=== PATIENT | female | born 1935 | race Hispanic/Latino ===

== ENCOUNTER 2017-05-26 22:42 | Inpatient (IN) | payer MEDICARE ==
[2017-05-26] MEDS ORDERED: Sodium Chloride 0.9% 1,000 ML IV ONE (23:18)
--- NOTE | 2017-05-26 23:32 | ED PDOC ---
Arrival/HPI - General Chief Complaint: Fever Time Seen by Provider: 05/26/17 22:43 Historian: Patient - History of Present Illness Narrative History of Present Illness (Text): 05/26/17 23:31 An 82 year old female, whose past medical history includes Rheumatoid arthritis and osteoporosis, presents to the emergency department complaining of fever, occasional chills and nonproductive cough for the past couple days. Patient denies any chest pain, back pain, nausea, vomiting, diarrhea or any other complaints at this time. Time/Duration: < week Symptom Onset: Sudden Symptom Course: Unchanged Activities at Onset: Rest Context: Home Past Medical History - Provider Review Nursing Documentation Reviewed: Yes - Infectious Disease Hx of Infectious Diseases: None - Cardiac Hx Cardiac Disorders: No Hx Pacemaker: No - Pulmonary Hx Respiratory Disorders: No - Neurological Hx Neurological Disorder: Yes Other/Comment: fainting - HEENT Hx HEENT Disorder: Yes Hx Glaucoma: Yes - Renal Hx Renal Disorder: No - Endocrine/Metabolic Hx Endocrine Disorders: No - Hematological/Oncological Hx Blood Disorders: No - Integumentary Hx Dermatological Disorder: No - Musculoskeletal/Rheumatological Hx Musculoskeletal Disorders: Yes Hx Arthritis: Yes (RA) Hx Falls: Yes Other/Comment: rheumatoid artritis of hands, spine surgery, right foot sx - Gastrointestinal Hx Gastrointestinal Disorders: Yes Other/Comment: Polyp removed from rectum - Genitourinary/Gynecological Hx Genitourinary Disorders: No - Psychiatric Hx Psychophysiologic Disorder: Yes Hx Anxiety: Yes Hx Depression: Yes ( of daughter 12 yrs ago) Hx Emotional Abuse: No Hx Physical Abuse: No Hx Substance Use: No - Surgical History Hx Hysterectomy: Yes Other/Comment: R Foot SX, Spinal SX (Neck) - Anesthesia Hx Anesthesia: No Hx Anesthesia Reactions: No Hx Malignant Hyperthermia: No - Suicidal Assessment Feels Threatened In Home Enviroment: No Family/Social History - Physician Review Nursing Documentation Reviewed: Yes Family/Social History: No Known Family HX Smoking Status: Never Smoked Hx Alcohol Use: No Hx Substance Use: No Allergies/Home Meds Allergies/Adverse Reactions: Allergies No Known Allergies Allergy (Verified 10/07/15 18:32) Home Medications: Home Meds Medication Instructions Recorded Confirmed Folic Acid [Folic Acid] 1 mg PO DAILY 06/16/15 06/18/15 Latanoprost [Xalatan] 2.5 ml BOTHEYES DAILY 06/16/15 06/18/15 Methotrexate [Methotrexate] 10 mg PO QWK 06/16/15 06/16/15 Cefpodoxime [Vantin] 200 mg PO BID 06/18/15 06/18/15 Gabapentin [Neurontin] 300 mg PO HS 06/18/15 06/18/15 LORazepam [Ativan] 1 mg PO HS 06/18/15 06/18/15 oxyCODONE [oxyCODONE Immediate 10/07/15 Release Tab] Review of Systems - Physician Review All systems were reviewed & negative as marked: Yes - Review of Systems Constitutional: Fevers, Other (chills) Respiratory: Cough (non productive) Cardiovascular: absent: Chest Pain Gastrointestinal: absent: Diarrhea, Nausea, Vomiting Musculoskeletal: absent: Back Pain Physical Exam Vital Signs Reviewed: Yes Vital Signs Temp Pulse Resp BP Pulse Ox 05/27/17 01:23 98.4 F 97 H 18 145/76 95 05/26/17 22:58 101.3 F H 113 H 18 162/81 H 95 Temperature: Febrile Blood Pressure: Hypertensive Pulse: Tachycardic Respiratory Rate: Normal Appearance: Positive for: Well-Appearing, Non-Toxic, Comfortable Pain Distress: None Mental Status: Positive for: Alert and Oriented X 3 - Systems Exam Head: Present: Atraumatic, Normocephalic Pupils: Present: PERRL Extroacular Muscles: Present: EOMI Conjunctiva: Present: Normal Mouth: Present: Moist Mucous Membranes Neck: Present: Normal Range of Motion. No: Meningeal Signs Respiratory/Chest: Present: Rhonchi (scattered rhonchi b/l). No: Respiratory Distress, Accessory Muscle Use Cardiovascular: Present: Tachycardic (S1, S2) Abdomen: Present: Normal Bowel Sounds. No: Tenderness, Distention, Peritoneal Signs Back: Present: Normal Inspection Upper Extremity: Present: Normal Inspection. No: Cyanosis, Edema Lower Extremity: Present: Normal Inspection. No: Edema Neurological: Present: GCS=15, CN II-XII Intact, Speech Normal, Motor Func Grossly Intact, Normal Sensory Function Skin: Present: Warm, Dry, Normal Color. No: Rashes Psychiatric: Present: Alert, Oriented x 3, Normal Insight, Normal Concentration Medical Decision Making ED Course and Treatment: 05/26/17 23:29 Impression: An 82 year old female with fever, occasional chills and nonproductive cough. Plan: -- EKG -- chest xray -- labs -- Urinalysis -- IV fluids, Tylenol -- Reassess and disposition Prior Visits: Notes and results from previous visits were reviewed. Patient was last seen in the emergency department on 01/13/16 for evaluation of headache, right upper arm pain and back pain s/p fall. Progress Notes: 05/27/17 01:14 Chest xray: No acute process, as read by me. 05/27/17 02:10 EKG: Ordered, reviewed, and independently interpreted the EKG. Rate : 103 BPM Rhythm : sinus tachycardia Interpretation : No acute changes 05/27/17 02:[address] Ayon, who accepts patient under his service. - Lab Interpretations Lab Results: 05/26/17 23:40 05/26/17 23:40 Lab Results 05/27/17 00:42: Urine Color Straw, Urine Appearance Clear, Urine pH 6.5, Ur Specific [place] 1.010, Urine Protein Negative, Urine Glucose (UA) Negative, Urine Ketones Negative, Urine Blood Negative, Urine Nitrate Negative, Urine Bilirubin Negative, Urine Urobilinogen 0.2, Ur Leukocyte Esterase Negative 05/26/17 23:40: Influenza Typ A,B (EIA) Negative for flu a/b 05/26/17 23:40: Sodium 137, Chloride 100, Potassium 4.1, Carbon Dioxide 26, Anion Gap 14, BUN 22 H, Creatinine 1.0, Est GFR ( Amer) > 60, Est GFR ( Non-Af Amer) 53, Random Glucose 145 H, Calcium 9.4, Phosphorus 3.1, Magnesium 2.0, Total Bilirubin 0.4, AST 21, ALT 22, Alkaline Phosphatase 88, Total Protein 7.2, Albumin 4.3, Globulin 2.9, Albumin/Globulin Ratio 1.5 05/26/17 23:40: pO2 59 H, VBG pH 7.38, VBG pCO2 46.0, VBG HCO3 27.2, VBG Total CO2 28.6 H, VBG O2 Sat (Calc) 93.0 H, VBG Base Excess 1.5, VBG Potassium 4.0, Sodium 135.0, Chloride 103.0, Lactate 1.5, FiO2 21.0, Venous Blood Potassium 4.0 05/26/17 23:40: PT 11.4, INR 1.00, APTT 32.0 05/26/17 23:40: WBC 7.1, RBC 3.91, Hgb 11.6 L, Hct 36.7, MCV 93.9, MCH 29.7, MCHC 31.6, RDW 13.4, Plt Count 230, MPV 9.5, Gran % 74.3 H, Lymph % (Auto) 12.0 L, [place] % (Auto) 11.0 H, Eos % (Auto) 2.3, Baso % (Auto) 0.4, Gran # 5.27, Lymph # 0.9 L, [place] # 0.8 H, Eos # 0.2, Baso # 0.03 I have reviewed the lab results: Yes - RAD Interpretation Radiology Orders: 05/26/17 23:18 CHEST PORTABLE [RAD] Stat - EKG Interpretation Interpreted by ED Physician: Yes Type: 12 lead EKG - Medication Orders Current Medication Orders: Ceftriaxone Sodium (Rocephin 1 Gram Ivpb) 1 gm in 100 mls @ 200 mls/hr IV ONCE STA PRN Reason: Protocol Stop: 05/27/17 02:39 Discontinued Medications Acetaminophen (Tylenol 325mg Tab) 650 mg PO STAT STA Stop: 05/26/17 23:24 Last Admin: 05/27/17 00:07 Dose: 650 mg MAR Pain/Vitals Document 05/27/17 00:07 Mike (Rec: 05/27/17 00:07 [id number]) Pain Reassessment Is This A Pain ReAssessment? No Sleep Is patient sleeping during reassessment? No Presence of Pain Presence of Pain No Sodium Chloride (Sodium Chloride 0.9%) 1,000 mls @ 2,000 mls/hr IV .Q30M ONE Stop: 05/26/17 23:47 Last Admin: 05/27/17 00:08 Dose: 2,000 mls/hr eMAR Start Stop Document 05/27/17 00:08 Mike (Rec: 05/27/17 00:08 [id number]) Intravenous Solution Start Date 05/26/17 Start Time 23:40 - Scribe Statement The provider has reviewed the documentation as recorded by the Eula Flores Provider Scribe Attestation: All medical record entries made by the Scribe were at my direction and personally dictated by me. I have reviewed the chart and agree that the record accurately reflects my personal performance of the history, physical exam, medical decision making, and the department course for this patient. I have also personally directed, reviewed, and agree with the discharge instructions and disposition. Disposition/Present on Arrival - Present on Arrival Any Indicators Present on Arrival: No History of DVT/PE: No History of Uncontrolled Diabetes: No Urinary Catheter: No History of Decub. Ulcer: No History Surgical Site Infection Following: None - Disposition Have Diagnosis and Disposition been Completed?: Yes Diagnosis: Fever, SIRS (systemic inflammatory response syndrome) Disposition: HOSPITALIZED Disposition Time: 02:12 Patient Plan: Observation Patient Problems: Current Active Problems Problem Status Onset Fever Acute SIRS (systemic inflammatory response syndrome) Acute Condition: STABLE Forms: [facility] ([place]ots[place]an)
[2017-05-27 00:06] LABS: VENOUS BLOOD GAS BASE EXCESS 1.5 mmol/L (0.0-2.0); VENOUS BLOOD GAS PO2 59 mm/Hg (30-55); VENOUS BLOOD PH 7.38 (7.32-7.43)
[2017-05-27 00:07] LABS: BASO # 0.03 K/mm3 (0.0-2.0); BASO % 0.4 % (0.0-3.0); EOS # 0.2 (0.0-0.7); EOS % 2.3 % (1.5-5.0); GRAN # 5.27 (1.4-6.5); GRAN % 74.3 % (50.0-68.0); HEMOGLOBIN 11.6 g/dL (12.0-16.0); LYMPH # 0.9 (1.2-3.4); MEAN CELL VOLUME 93.9 fl (80.0-105.0); MEAN CORPUSCULAR HEMOGLOBIN 29.7 pg (25.0-35.0); MEAN CORPUSCULAR HGB CONC 31.6 g/dl (31.0-37.0); MEAN PLATELET VOLUME 9.5 fl (7.0-11.0); MONO # 0.8 (0.1-0.6); RBC 3.91 10^6/uL (3.5-6.1); RED CELL DISTRIBUTION WIDTH 13.4 % (11.5-14.5); WHITE BLOOD COUNT 7.1 10^3/ul (4.5-11.0)
[2017-05-27 00:22] LABS: PROTHROMBIN TIME 11.4 SECONDS (9.4-12.5)
[2017-05-27 00:29] LABS: ALB/GLOB RATIO 1.5 (1.1-1.8); ALBUMIN 4.3 g/dL (3.0-4.8); ALT/SGPT 22 U/L (7-56); AST/SGOT 21 U/L (14-36); BLOOD UREA NITROGEN 22 mg/dL (7-21); CALCIUM 9.4 mg/dL (8.4-10.5); GFR AFRICAN-AMERICAN > 60; GFR NON-AFRICAN AMERICAN 53
[2017-05-27 00:57] LABS: PH,URINE 6.5 (4.7-8.0); URINE BILIRUBIN NEGATIVE (NEGATIVE); URINE BLOOD NEGATIVE (NEGATIVE); URINE GLUCOSE (UA) NEGATIVE (NEGATIVE); URINE LEUKOCYTE ESTERASE NEGATIVE Leu/uL (NEGATIVE); URINE NITRATE NEGATIVE (NEGATIVE); URINE PROTEIN NEGATIVE mg/dL (<30 mg/dL); URINE UROBILINOGEN 0.2 E.U./dL (<1 E.U./dL)
[2017-05-27 00:58] LABS: URINE APPEARANCE CLEAR (CLEAR); URINE COLOR STRAW (YELLOW)
[2017-05-27] MEDS ORDERED: cefTRIAXone 1 gm 1 GM/100 ML BAG IV STA (02:10)
--- NOTE | 2017-05-27 09:05 | RAD ---
HISTORY: Sepsis Patient COMPARISON: 01/13/2016. FINDINGS: LUNGS: The lungs are well inflated and clear. PLEURA: No significant pleural effusion identified, no pneumothorax apparent. CARDIOVASCULAR: The heart is normal in size. Atherosclerotic aortic arch calcifications are present. OSSEOUS STRUCTURES: No significant abnormalities. VISUALIZED UPPER ABDOMEN: Normal. OTHER FINDINGS: None. IMPRESSION: No active pulmonary disease.
[2017-05-27] MEDS ORDERED: cefTRIAXone 2 GM IN NS 2 GM/100 ML BAG IVPB STA (10:07)
--- NOTE | 2017-05-27 10:18 | CARD ---
APPROVED REPORT EKG Measurement Heart [id number] <Conclusion> Sinus tachycardia LVH by voltage No change except for faster rate
[2017-05-27 12:29] LABS: TROPONIN I < 0.01 ng/mL
--- NOTE | 2017-05-27 12:36 | CT ---
PROCEDURE: CT Chest without contrast HISTORY: r/o infilt COMPARISON: None. TECHNIQUE: Contiguous axial images were obtained through the chest without intravenous contrast enhancement. Sagittal and coronal reconstructions were performed. Radiation dose (DLP): 419 mGy-cm. This CT exam was performed using one or more of the following dose reduction techniques: Automated exposure control, adjustment of the mA and/or kV according to patient size, and/or use of iterative reconstruction technique. FINDINGS: LUNGS: Clear lungs. Visualized airway clear. MEDIASTINUM: Unremarkable thoracic aorta. No aneurysm. Normal sized heart. Main pulmonary artery unremarkable. No vascular congestion. No lymphadenopathy. PLEURA: No pleural fluid. No pneumothorax. BONES: No fracture. No destructive lesion. UPPER ABDOMEN: Grossly unremarkable. OTHER FINDINGS: None. IMPRESSION: Unremarkable non-contrast enhanced CT of the chest. No evidence of infiltrate
[2017-05-27 12:41] LABS: T3 UPTAKE 31.6 % (23.0-41.0); T4 5.8 ug/dL (5.5-11.0)
[2017-05-27 19:23] VITALS: BMI 23.0
[2017-05-27] MEDS ORDERED: Pneumococcal 23-Valent Vaccine IM ONE (19:23)
[2017-05-27] MEDS ORDERED: Influenza Vaccine 60 mcg/0.5 mL SYR (4YR UP) IM ONE (19:23)
--- NOTE | 2017-05-27 21:42 | CON ---
DATE: 05/27/2017 LOCATION: The patient is seen in emergency room. CHIEF COMPLAINT: Fever times several days. HISTORY OF PRESENT ILLNESS: This is an 82-year-old with past medical history of rheumatoid arthritis, on methotrexate; history of depression; hyperlipidemia; rectal bleeding; rectal polyp; history of osteoporosis, who is admitted to the emergency room complaining of fevers times several days. The patient states she has been having cough. The cough is nonproductive. She is having chills. She has no abdominal pain. There is no chest pain. No diarrhea or constipation. No bright red blood per rectum. No melena. No dysuria or frequency. PAST MEDICAL HISTORY: Significant for rheumatoid arthritis, depression, hyperlipidemia, rectal bleeding, rectal polyps, and osteoporosis. PAST SURGICAL HISTORY: Significant for foot surgery. The patient had a colonoscopy and biopsy on 03/07/2016. The patient also had hysterectomy. ALLERGIES: THE PATIENT HAS NO KNOWN ALLERGIES. MEDICATIONS AT HOME: Include oxycodone, methotrexate, and Tylenol. PHYSICAL EXAMINATION: VITAL SIGNS: On exam, the patient is in bed, appearing washed out and weak with a temperature of 99.5, T-max is 101.3; heart rate of 113; respiratory rate of 18 to 20; blood pressure is 160/80; oxygen saturation of 95%. HEENT: Unremarkable. NECK: Supple. LUNGS: Decreased breath sounds. HEART: Normal S1, S2. ABDOMEN: Soft, nontender. LABORATORY EXAMINATION: Reveals a white count of 7.1, hemoglobin of 11, platelets of 230, 74% granulocytosis. Coagulation is noted and blood gases are noted, pO2 of 59, pCO2 is 46 and FiO2 of 21%. The patient's BUN is 22, creatinine is 1.0 with a random glucose of 145. LFTs are normal. Urinalysis is unremarkable, and influenza serology is negative. Chest x-ray is reported to be negative. EKG, official report is not available. Dr. Catracho Alejandre's note is reviewed. ASSESSMENT AND PLAN: This is an 82-year-old female with anxiety; rheumatoid arthritis, on methotrexate; depression; hyperlipidemia; rectal bleeding by history with history of rectal polyps; osteoporosis, admitted with a fever of 101.3, tachycardia, bronchial sounds on lung exam. 1. SIRS, systemic inflammatory response syndrome, must rule out underlying community-acquired pneumonia versus influenza, although the influenza serology testing is negative. We will order a CAT scan of the chest, blood cultures, urine cultures, sputum cultures, procalcitonin, influenza serology, and start the patient on ceftriaxone and doxycycline. Case discussed with and we will make further recommendations and we will also start the patient on Tamiflu, cardiac workup, and troponin as per Dr. Ayon. We will follow with you. Steven Sharp MD
--- NOTE | 2017-05-27 22:23 | HP ---
HISTORY OF PRESENT ILLNESS: An 82-year-old female presented to [facility] with a history of cough and malaise for several days. PAST MEDICAL HISTORY: The patient has a past medical history of rheumatoid arthritis, cervical disk disease with surgery in the past, neuropathy, anxiety and depression, hyperlipidemia, rectal bleeding with colon polyps. She had a colonoscopy in 2015. SOCIAL HISTORY: She is nonsmoker, nondrinker, nondrug user. ALLERGIES: SHE HAS NO KNOWN ALLERGIES. MEDICATIONS: Home medications are reported to be methotrexate 10 mg weekly, Xalatan eye drops 2.5 mL daily to both eyes, Neurontin 300 mg at bedtime, folic acid 1 mg daily, Tylenol 2 tablets q.6 hours p.r.n. for pain, Ativan 1 mg at bedtime. REVIEW OF SYSTEMS: Multiple systems are reviewed. Pertinent findings that the patient states that she is having a cough. She is also having a sensation of palpitation with no chest pain at this time. PHYSICAL EXAMINATION: VITAL SIGNS: Reported as a T-max of 101.3, pulse was 113, it is currently 102, blood pressure is 162/81, respiratory rate was 18, oxygen saturation at room air is 95%. NECK: Supple. No JVD. LUNGS: Show bibasilar rhonchi, more on the right than on the left. HEART: Rapid S1, S2 rhythm. ABDOMEN: Soft with positive bowel sounds. EXTREMITIES: No evidence of edema. NEUROLOGIC: She is alert and oriented x3. LABORATORY DATA: EKG is reported as showing a sinus tachycardia. Chemistry shows normal electrolytes. BUN is 22, creatinine is 1, random blood sugar is 145. Urinalysis is negative. Her venous blood gas showed a lactate of 1.5. Her PT is 11.4 with an INR of 1 with a PTT of 32. CBC shows WBC is 7.1, RBC 3.91, hemoglobin 11.6, hematocrit 36.7, platelet count 230. Serological studies, rapid flu for influenza type A and B was reported as being negative. Chest x-ray is reported as showing well inflated lungs. IMPRESSION AND PLAN: 1. An 82-year-old female with history of cough, fever, tachycardia, and malaise. One must exclude the possibility of an underlying pneumonia. We will get infectious disease consult, procalcitonin. CAT scan of the chest, blood cultures and urine cultures. 2. Tachyarrhythmia. Must rule out cardiac etiology. We will get serial cardiac enzymes and cardiology evaluation as well as thyroid profile. We will check serial cardiac enzymes. 3. We will get influenza studies. 4. Continue with telemetry monitoring at this time. Nathalie Ayon MD
[2017-05-28 10:47] LABS: TROPONIN I < 0.01 ng/mL
--- NOTE | 2017-05-28 11:57 | PN ---
DATE: 05/28/2017 SUBJECTIVE: The patient is on telemetry at this time. Temperature is 97.9, blood pressure is 138/63, respiratory rate is 20, her oxygen saturation is 96% on room air, pulse is 68. The patient and the nursing staff state that initially this morning the patient was declining any further blood work; however, after discussion with the patient, she is now agreeing to get her serial cardiac enzymes and to be seen by perinatal director for tachyarrhythmia. PHYSICAL EXAMINATION: VITAL SIGNS: Her vital signs are as stated. GENERAL: She is awake and alert and oriented x3. NECK: Supple. No JVD. LUNGS: Clear. HEART: S1 and S2 rhythm. ABDOMEN: Scaphoid. Positive bowel sounds. EXTREMITIES: Show no evidence of edema. LABORATORY DATA: A CT of the chest is ordered by Infectious disease was reported showing no evidence of infiltrate. Her first troponin was less than 0.01. Her procalcitonin is less than 0.5. Her TSH is 0.9. ASSESSMENT AND PLAN: I will request cardiac and Cardiology consult. I will continue telemetry at this time. She will continue after discussion with Infectious disease on Tamiflu and the blood cultures of 24 hours are negative at this time. Nathalie Ayon MD
[2017-05-28] MEDS: Latanoprost 2.5 ml Opht Soln OU SCH ×2 (13:17→20:01)
--- NOTE | 2017-05-28 21:39 | PN ---
DATE: 05/28/2017 SUBJECTIVE: The patient is in bed, in no acute distress, nontoxic. PHYSICAL EXAMINATION: VITAL SIGNS: Temperature is 98, blood pressure is 130/70, respiratory rate of 16. HEENT: Unremarkable. NECK: Supple. LUNGS: Have decreased breath sounds. HEART: Normal S1, S2. ABDOMEN: Soft, nontender. LABORATORY EXAMINATION: Reveals a white count of 7.1, hemoglobin of 11. Chemistry reveals a BUN of 23, creatinine of 1.0, procalcitonin is less than 0.05. Urine analysis is noted and influenza is negative. Microbiology reveals blood and urine cultures are negative. MEDICATIONS: The patient is currently on omeprazole and doxycycline. CAT scan is noted. ASSESSMENT AND PLAN: This is an 82-year-old female with past medical history of rheumatoid arthritis on methotrexate, depression, hyperlipidemia, rectal bleed, rectal polyps, history of osteoporosis, admitted with fever 101.3, tachycardia, bronchial sounds with: 1. Systemic inflammatory response syndrome with negative CAT scan, negative cultures, negative procalcitonin. Discontinue ceftriaxone. Complete 5 days of doxycycline and 5 days of Tamiflu. Steven Sharp MD
[2017-05-29 04:14] VITALS: RESP 20
[2017-05-29 06:56] VITALS: BP 158/71; PULSE 81; TEMP 98; O2SAT 98
--- NOTE | 2017-05-29 08:18 | CON ---
DATE: 05/28/2017 The patient is in room 275, bed 2. REASON FOR CONSULTATION: Cardiac arrhythmia, respiratory tract infection, and fever. HISTORY OF PRESENT ILLNESS: This is an 82-year-old female was admitted to the hospital with cough and fever and found to have sinus tachycardia on EKG. Denies any chest pain. Denies palpitation. Denies dizziness. Denies any syncope. PAST MEDICAL HISTORY: Positive for rheumatoid arthritis, cervical disk disease for which she had surgery, neuropathy, anxiety, depression, hyperlipidemia, and colon polyps. PERSONAL HISTORY: Denies smoking and denies drinking. ALLERGIES: THE PATIENT DENIES ANY ALLERGIES. HOME MEDICATIONS: The patient was on methotrexate 10 mg weekly, Neurontin 300 mg at bedtime, folic acid 1 mg daily, and Ativan 1 mg at bedtime. REVIEW OF SYSTEMS: All the system was reviewed, positive mentioned in the history, otherwise negative. PHYSICAL EXAMINATION: VITAL SIGNS: Blood pressure 150/70, respirations 18, pulse 82, and temperature 99.6. The patient on admission has a temperature of 101.3. HEENT: Head is normocephalic. Eyes: Pupils normal. Conjunctivae normal. NECK: JVP low. Carotids equal. THORAX: AP diameter normal. LUNGS: No significant rales. CARDIOVASCULAR: S1 and S2. ABDOMEN: Soft. No tenderness. No organomegaly. EXTREMITIES: No clubbing. No cyanosis. LABORATORY DATA: WBC 7.1, hemoglobin 11.6, hematocrit 36.7, and platelets 230. Sodium 137, potassium 4.1, BUN 22, and creatinine 1.0. Troponin negative x2. Total protein 7.2 and albumin 4.3. TSH 0.90, T4 is 5.8, and T3 uptake 31.6. EKG showed sinus tachycardia 103 per minute. Chest x-ray, no abnormality seen. CT chest was unremarkable. No evidence of infiltrate. DIAGNOSES: 1. Fever and respiratory tract infection. 2. Sinus tachycardia. 3. Rheumatoid arthritis. 4. Cervical spine disease. PLAN: Sinus tachycardia on EKG probably reflection of fever and respiratory tract infection. The patient's heart rate is now stable. The patient is on Doryx 100 p.o. q.12 hours, methotrexate 10 mg p.o. q.weekly, folic acid 1 mg daily, Neurontin 300 mg p.o. at bedtime, Rocephin 2 g IV was already given, and Tamiflu capsule 75 mg b.i.d. We will order an echocardiogram and the patient for cardiac evaluation should have stress test later as outpatients when her pulmonary symptoms improve and we will follow with you. Dwight Walls MD
[2017-05-29] MEDS: Latanoprost 2.5 ml Opht Soln OU SCH (09:46)
--- NOTE | 2017-05-29 16:03 | PN ---
DATE: 05/29/2017 REASON FOR CONSULTATION AND FOLLOWUP: Cardiac arrhythmias, respiratory tract infection, fever. SUBJECTIVE: The patient denies chest pain or shortness of breath. OBJECTIVE: GENERAL: Not in apparent distress. VITAL SIGNS: As follows; temperature afebrile, heart rate 68, blood pressure 157/65. HEENT: PERRLA. Extraocular muscles intact. NECK: Supple. No carotid bruits or thyromegaly. CHEST: Clear to auscultation. HEART: S1 and S2 regular. ABDOMEN: Soft. EXTREMITIES: Clubbing and cyanosis negative. LABORATORY DATA: Blood workup as follows; WBC 7.1, hemoglobin 11.6, hematocrit 36.7, and platelet count 230. Chemistry shows sodium 136, potassium 4.4, chloride 100, carbon dioxide 26, anion gap 14, BUN 22, creatinine 1.0. IMPRESSION: Sinus tachycardia probably secondary to underlying respiratory tract infection and fever. Now, the patient has normal sinus rhythm, heart rate 67, hypertension. No arrhythmia noted. Rheumatoid arthritis. Cervical spine disease. Fever. Respiratory tract infection. RECOMMENDATION: Continue broad spectrum antibiotic as per ID and Dr. Yepez because the risk factor would suggest to have a stress test as an outpatient. The patient has been scheduled for a stress test as an outpatient in four weeks. We will look the echo. We will follow with you. Could be discharged. We will schedule stress test as an outpatient. ADDENDUM;PT WAS SCHEDULED FOR STRESS TEST IN 4 WEEKS OUT PT,.KATELIN FROM [facility] DEPT WENT,PT REFUSED TO SCHEDULE NOW AND SAID SHE WILL CALL HERSELF TO,DOES NOT WANT TO BE SCHEDULED NOW, WE WILL INFORM DR. YEPEZ Thank you Dr. Yepez for providing us the opportunity in taking care of the patient, Elmira Heredia. Dwight Conn MD JAMES
--- NOTE | 2017-05-29 16:16 | CARD ---
APPROVED REPORT EXAM: Two-dimensional and M-mode echocardiogram with Doppler and color Doppler. INDICATION Dyspnea 2D DIMENSIONS Left Atrium (2D)3.8 (1.6-4.0cm)IVSd1.1 (0.7-1.1cm) LVDd3.5 (3.9-5.9cm)PWd1.2 (0.7-1.1cm) LVDs2.2 (2.5-4.0cm)FS (%) 36.3 % LVEF (%)67.0 (>50%) M-Mode DIMENSIONS Aortic Root2.40 (2.2-3.7cm)Aortic Cusp Exc.1.30 (1.5-2.0cm) Aortic Valve AoV Peak Xscawyle842.0cm/Francois Peak GR.14mmHg Mitral Valve MV E Txnztuxa76.0cm/sMV A Hsqxhlwt211.0cm/sMV DMA239rm E/A ratio0.6MVA (PHT)1.76cm2 TDI E/Lateral E'0.0E/Medial E'0.0 Tricuspid Valve TR Peak Bgwrtdih444hw/sRAP [id number] Peak Gr.44mmHg [id number] LEFT VENTRICLE The left ventricle is normal size. There is mild concentric left ventricular hypertrophy. The left ventricular function is normal.EF-65% There is normal LV segmental wall motion. Transmitral Doppler flow pattern is Grade III-reversible restrictive diastolic dysfunction. No left ventricle thrombus noted on this study. There is no ventricular septal defect visualized. There is no left ventricular aneurysm. There is no mass noted in the left ventricle. RIGHT VENTRICLE The right ventricle is normal size. There is normal right ventricular wall thickness. The right ventricular systolic function is normal. ATRIA The left atrium size is normal. The right atrium size is normal. The atrial septum is aneurysmal. AORTIC VALVE The aortic valve is calcified but opens well. There is mild aortic regurgitation. There is no aortic valvular stenosis. There is no aortic valvular vegetation. MITRAL VALVE The mitral valve is thickened but opens well. Mitral annular calcification is moderate to severe. Mitral regurgitation is moderate to severe. The mitral regurgitant jet is eccentrically directed. There is no mitral valve stenosis. There is no evidence of mitral valve prolapse. TRICUSPID VALVE The tricuspid valve leaflets are thickened , but open well. There is moderate tricuspid regurgitation.RVSP-54 mmof hg. There is no tricuspid valve stenosis. There is no tricuspid valve prolapse or vegetation. PULMONIC VALVE The pulmonic valve is mildly thickened. There is trace pulmonic valvular regurgitation. There is no pulmonic valvular stenosis. GREAT VESSELS The aortic root is normal in size. The ascending aorta is normal in size. The pulmonary artery is normal. The IVC is normal in size and collapses >50% with inspiration. PERICARDIAL EFFUSION There is no pleural effusion. There is no pericardial effusion. <Conclusion> The left ventricle is normal size. There is mild concentric left ventricular hypertrophy. The left ventricular function is normal.EF-65% There is mild aortic regurgitation. Mitral regurgitation is moderate to severe. The mitral regurgitant jet is eccentrically directed. There is moderate tricuspid regurgitation.RVSP-54 mmof hg. There is trace pulmonic valvular regurgitation.
--- NOTE | 2017-05-29 19:24 | PN ---
DATE: 05/29/2017 SUBJECTIVE: The patient is in bed, in no acute distress, and nontoxic. PHYSICAL EXAMINATION: VITAL SIGNS: Temperature is 98, blood pressure is 150/70, respiratory rate is 20, and heart rate is 71. HEENT: Unremarkable. NECK: Supple. LUNGS: Decreased breath sounds. HEART: Normal S1 and S2. ABDOMEN: Soft and nontender. LABORATORY DATA: Reveals a white count of 7.1 and hemoglobin of 11. BUN of 22, creatinine of 1.0, and procalcitonin is less than 0.05. Influenza is negative. Blood cultures are negative. Urine cultures are negative. ASSESSMENT AND PLAN: This is an 82-year-old female with past medical history of rheumatoid arthritis on methotrexate, depression, hyperlipidemia, rectal bleeding, rectal polyps, history of osteoporosis, admitted with fever, tachycardia, and bronchial sounds with systemic inflammatory response syndrome, negative CAT scan, negative procalcitonin, and complete with p.o. doxycycline and 5 days of Tamiflu. I have discussed with Dr. Ayon. Steven Sharp MD
== END 2017-05-29 11:50 | disposition home or self-care (01) | DRG 864 ==
LOC: ED 22:42 → ERH 05-27 02:11 → OBSVTOIN 05-27 10:11 → ERH 05-28 00:19 → 2RSO 05-28 00:49
PROVIDERS: ADMIT Internal Medicine; ATTEND Internal Medicine
DX: R50.9 Fever, unspecified (principal); R65.10 Systemic inflammatory response syndrome (SIRS) of non-infectious origin without acute organ dysfunction; M06.9 Rheumatoid arthritis, unspecified; J98.8 Other specified respiratory disorders; R00.0 Tachycardia, unspecified; I10 Essential (primary) hypertension; E78.5 Hyperlipidemia, unspecified; H40.9 Unspecified glaucoma; I49.9 Cardiac arrhythmia, unspecified; M81.0 Age-related osteoporosis without current pathological fracture; Z79.899 Other long term (current) drug therapy; Z86.010 Personal history of colon polyps; Z87.19 Personal history of other diseases of the digestive system; Z90.710 Acquired absence of both cervix and uterus; R40.2412 Glasgow coma scale score 13-15, at arrival to emergency department; M48.9 Spondylopathy, unspecified

== ENCOUNTER 2018-01-11 22:05 | Emergency (ER) | payer MEDICARE ==
[2018-01-11 22:06] VITALS: BMI 23.0
[2018-01-11 22:25] VITALS: RESP 18; TEMP 98.9
--- NOTE | 2018-01-11 22:56 | ED PDOC ---
Arrival/HPI - General Chief Complaint: Trauma Time Seen by Provider: 01/11/18 22:26 Historian: Patient - History of Present Illness Narrative History of Present Illness (Text): 01/11/18 22:20 82 year old female, whose past medical history includes Rheumatoid arthritis and osteoporosis, presents to the emergency department complaining of neck pain and pain to the forehead s/p trip and fall. Patient tripped and fell on to her outstretched arms and knees. Patient is not on any blood thinners. Patient has no other complaints and denies any loss of consciousness, decrease range of motion, nausea, vomiting, diarrhea, back pain, neck pain, headache, dizziness, or any other complaints. Symptom Onset: Sudden Symptom Course: Unchanged Activities at Onset: Light Context: Tripped Past Medical History - Provider Review Nursing Documentation Reviewed: Yes - Infectious Disease Hx of Infectious Diseases: None - Cardiac Hx Cardiac Disorders: No Hx Pacemaker: No - Pulmonary Hx Respiratory Disorders: No - Neurological Hx Neurological Disorder: Yes (syncope) Other/Comment: fainting - HEENT Hx HEENT Disorder: Yes (reading glasses) Hx Glaucoma: Yes - Renal Hx Renal Disorder: No - Endocrine/Metabolic Hx Endocrine Disorders: No - Hematological/Oncological Hx Blood Disorders: No - Integumentary Hx Dermatological Disorder: Yes Other/Comment: dry skin both feet, bunyon left foot, 2nd toe overlapping great toe hammertoe, r ft pt had bunyon sx but toes 2 and 3 hammertoes and overlap great toe - Musculoskeletal/Rheumatological Hx Musculoskeletal Disorders: Yes Hx Arthritis: Yes (RA) Hx Falls: Yes (past) Hx Osteoporosis: Yes Hx Unsteady Gait: Yes Other/Comment: rheumatoid artritis of hands, spine surgery neck, right foot sx - Gastrointestinal Hx Gastrointestinal Disorders: Yes Other/Comment: colonoscopy 03/07/17 dx rectal bleeding, dx polyp ascending, transverse colon, rectal polyp, hemorrhoids - Genitourinary/Gynecological Hx Genitourinary Disorders: No - Psychiatric Hx Psychophysiologic Disorder: Yes Hx Anxiety: Yes Hx Depression: Yes ( of daughter 12 yrs ago) Hx Emotional Abuse: No Hx Physical Abuse: No Hx Substance Use: No - Surgical History Hx Hysterectomy: Yes Other/Comment: R Foot SX, Spinal SX (Neck) - Anesthesia Hx Anesthesia: No Hx Anesthesia Reactions: No Hx Malignant Hyperthermia: No - Suicidal Assessment Feels Threatened In Home Enviroment: No Family/Social History - Physician Review Nursing Documentation Reviewed: Yes Family/Social History: No Known Family HX Smoking Status: Never Smoked Hx Alcohol Use: No Hx Substance Use: No Allergies/Home Meds Allergies/Adverse Reactions: Allergies No Known Allergies Allergy (Verified 10/07/15 18:32) Home Medications: Home Meds Medication Instructions Recorded Confirmed Latanoprost [Xalatan] 2.5 ml BOTHEYES DAILY 06/16/15 05/27/17 Review of Systems - Physician Review All systems were reviewed & negative as marked: Yes - Review of Systems Gastrointestinal: absent: Diarrhea, Nausea, Vomiting Musculoskeletal: Neck Pain, Other ((+) pain to the forehead. (-)decrease range of motion). absent: Back Pain Neurological: absent: Headache, Dizziness, Other (loss of consciousness) Physical Exam Vital Signs Reviewed: Yes Vital Signs Temp Pulse Resp BP Pulse Ox 01/12/18 01:15 85 18 156/97 H 100 01/11/18 22:22 98.9 F 90 18 187/85 H 98 Temperature: Afebrile Blood Pressure: Hypertensive Pulse: Regular Respiratory Rate: Normal Appearance: Positive for: Well-Appearing, Non-Toxic, Comfortable Pain Distress: None Mental Status: Positive for: Alert and Oriented X 3 - Systems Exam Head: Present: Atraumatic, Normocephalic, Other (Right upper lip swollon because she bit it when she fell) Pupils: Present: PERRL Extroacular Muscles: Present: EOMI Conjunctiva: Present: Normal Mouth: Present: Moist Mucous Membranes Neck: Present: MIDLINE TENDERNESS (Midline cervical spine tenderness) Respiratory/Chest: Present: Clear to Auscultation, Good Air Exchange. No: Respiratory Distress, Accessory Muscle Use Cardiovascular: Present: Regular Rate and Rhythm, Normal S1, S2. No: Murmurs Abdomen: No: Tenderness, Distention, Peritoneal Signs Back: Present: Normal Inspection Upper Extremity: Present: Other (Abrasions to bilateral ulnar aspect of wrist). No: Cyanosis, Edema Lower Extremity: Present: Normal Inspection. No: Edema Neurological: Present: GCS=15, CN II-XII Intact, Speech Normal Skin: Present: Warm, Dry, Normal Color. No: Rashes Psychiatric: Present: Alert, Oriented x 3, Normal Insight, Normal Concentration Medical Decision Making ED Course and Treatment: 01/11/18 22:04 Impression: 82 year old female presents complaining of neck pain and pain to the forehead s/ p trip and fall. Plan: -- CT Cervical Spine w/o Contrast -- Head w/o Contrast CT -- Maxillofacial CT w/o Contrast -- Tylenol -- Reassess and disposition Prior Visits: Notes and results from previous visits were reviewed. Progress Notes: EXAM: CT Head Without Intravenous Contrast Dictated and Authenticated by: Karson Aleman MD 01/11/2018 11:34 PM IMPRESSION: 1. Acute 4 mm subdural hematoma along the interhemispheric falx. 2. No evidence of midline shift. 3. Mild cerebral atrophy. EXAM: CT Maxillofacial Without Intravenous Contrast Dictated and Authenticated by: Karson Aleman MD 01/11/2018 11:56 PM IMPRESSION: 1. No acute fractures identified. 2. Mild midline facial soft tissue swelling. 3. Mild right maxillary sinus fluid/soft tissue. EXAM: CT Cervical Spine Without Intravenous Contrast Dictated and Authenticated by: Karson Aleman MD 01/12/2018 12:01 AM IMPRESSION: 1. Motion artifact limits this study 2. No evidence of acute fracture. 3. No evidence of malalignment. 4. Multilevel cervical posterior posterior fusion-surgical changes as described above 01/12/18 00:[address] Dawkins for a neurosurgery consult. He reviewed CT head , does not believe patient has a subdural, rather there is calcification fo the interhemispheric falx. Nothing to do from his standpoint. 01/12/18 12:44 On reevaluation, patient states she feels better. Discussed results of CT scan on what radiologist said VS what neurosurgeon said. Discussed admission VS discharge with patient. Patient states she does not want to stay in the hospital and feels better. Patient is stable for discharge. Patient was instructed to follow up with physician or return if symptoms worsen or new concerning symptoms arise. - RAD Interpretation Radiology Orders: 01/11/18 22:26 CERVICAL SPINE W/O CONTRAST [CT] Stat HEAD W/O CONTRAST [CT] Stat MAXILLOFACIAL W/O CONTRAST [CT] Stat - Medication Orders Current Medication Orders: Discontinued Medications Acetaminophen (Tylenol 325mg Tab) 650 mg PO STAT STA Stop: 01/11/18 22:29 Last Admin: 01/11/18 23:24 Dose: 650 mg - Scribe Statement The provider has reviewed the documentation as recorded by the Eula Mack Provider Eula Attestation: All medical record entries made by the Eula were at my direction and personally dictated by me. I have reviewed the chart and agree that the record accurately reflects my personal performance of the history, physical exam, medical decision making, and the department course for this patient. I have also personally directed, reviewed, and agree with the discharge instructions and disposition. Disposition/Present on Arrival - Present on Arrival Any Indicators Present on Arrival: No History of DVT/PE: No History of Uncontrolled Diabetes: No Urinary Catheter: No History of Decub. Ulcer: No History Surgical Site Infection Following: None - Disposition Have Diagnosis and Disposition been Completed?: Yes Diagnosis: Closed head injury, Fall from standing, Abrasion of wrist, Lip abrasion Disposition: HOME/ ROUTINE Disposition Time: 01:15 Condition: FAIR Discharge Instructions (ExitCare): Skin Abrasions, Closed Head Injury Additional Instructions: LUKAS VELASCO, thank you for letting us take care of you today. Your provider was Tammy Acevedo MD and you were treated for FALL. The emergency medical care you received today was directed at your acute symptoms. If you were prescribed any medication, please fill it and take as directed. It may take several days for your symptoms to resolve. Return to the Emergency Department if your symptoms worsen, do not improve, or if you have any other problems. Please contact your doctor or call one of the physicians/clinics you have been referred to that are listed on the Patient Visit Information form that is included in your discharge packet. Bring any paperwork you were given at discharge with you along with any medications you are taking to your follow up visit. Our treatment cannot replace ongoing medical care by a primary care provider outside of the emergency department. Thank you for allowing the [facility] team to be part of your care today. If you had an X-Ray or CT scan: A Radiologist will review the ED reading if any change in treatment is needed we will contact you. If you had a blood, urine, or wound culture: It will take several days for the results, if any change in treatment is needed we will contact you. If you had an STI test: It will take 48 hours for the results. Please call after 1 week if you have not heard back. Referrals: Nathalie Ayon MD [Primary Care Provider] - Follow up with primary Forms: [employer] (Uzbek)
[2018-01-12 01:28] VITALS: BP 156/97; PULSE 85; O2SAT 100
--- NOTE | 2018-01-12 09:01 | CT ---
Date of service: 01/11/2018 PROCEDURE: CT HEAD WITHOUT CONTRAST. HISTORY: Pain, with injury COMPARISON: Noncontrast head CT performed 01/13/16 TECHNIQUE: Axial computed tomography images were obtained through the head/brain without intravenous contrast. Radiation dose: Total exam DLP = 717.70 mGy-cm. This CT exam was performed using one or more of the following dose reduction techniques: Automated exposure control, adjustment of the mA and/or kV according to patient size, and/or use of iterative reconstruction technique. FINDINGS: HEMORRHAGE: 4 mm subdural hematoma along the interhemispheric falx appears acute. BRAIN: Diffuse atrophy with prominence of the ventricles and sulci noted. No mass effect or edema. The mejias-white matter differentiation appears intact. VENTRICLES: Cavum septum pellucidum, anatomic variant. No hydrocephalus. CALVARIUM: Unremarkable. PARANASAL SINUSES: Unremarkable as visualized. No significant inflammatory changes. MASTOID AIR CELLS: Unremarkable as visualized. No inflammatory changes. OTHER FINDINGS: None. IMPRESSION: Acute 4 mm subdural hematoma along the interhemispheric falx. Additional findings as above. Preliminary impression was provided by virtual radiologic.
--- NOTE | 2018-01-12 12:14 | CT ---
Date of service: 01/11/18 CT cervical spine without IV contrast Indication: Pain with injury Comparison: None available Technique: Axial computed tomography images were obtained of the cervical spine without the use of intravenous contrast. Coronal and sagittal reformatted images were created and reviewed. This CT exam was performed using 1 or more of the following dose reduction techniques: Automated exposure control, adjustment of the MAA and/or kV according to patient size, and/or use of iterative reconstruction technique. Radiation dose: Total exam DLP = 404.58 mGy-cm. Findings: Examination limited by motion artifact. Osseous demineralization. Straightening of the normal cervical lordosis may be related to muscle spasm or positioning. Extensive multilevel degenerative changes including intervertebral disc space narrowing and prominent osteophyte formation. Findings most prominent at C6-C7 consistent with cervical spondylosis. C3 through C6 posterior cervical fusion with posterior paraspinal rods and intrapedicular screws present. There is no evidence of acute fracture or subluxation. The prevertebral soft tissues appear within normal limits. The dens tip appears intact. Carotid artery calcifications. Included portions of the thyroid gland appear unremarkable. Included portions of lung apices appear clear. Impression: Examination limited by motion artifact. Straightening of the normal cervical lordosis may be related to muscle spasm or positioning. Posterior cervical fusion C3 through C6. Multilevel degenerative changes. No evidence of acute fracture or subluxation identified. Preliminary impression was provided by virtual radiologic.
--- NOTE | 2018-01-12 13:07 | CT ---
Date of service: 01/11/18 CT maxillofacial bones without IV contrast Indication: Pain, with injury. Comparison: None available Technique: Axial computed tomography images were obtained of the maxillofacial bones without the use of intravenous contrast. Coronal and sagittal reformatted images were generated and reviewed. This CT exam was performed using 1 or more of the following dose reduction techniques: Automated exposure control, adjustment of the MAA and/or kV according to patient size, and/or use of iterative reconstruction technique. Radiation dose: Total exam DLP = 740.44 mGy-cm. Findings: Mild midline facial soft tissue swelling. The facial bones appear intact without acute displaced fracture identified. The orbits appear unremarkable. The temporomandibular joints are located. Mild right maxillary sinus opacification. The paranasal sinuses appear otherwise clear. The visualized brain appears unremarkable. Partially imaged cervical fusion hardware with resultantstreak artifact. Impression: Mild midline facial soft tissue swelling. No acute displaced fracture identified. Findings as above. Preliminary impression was provided by virtual radiologic.
== END 2018-01-12 01:15 | disposition home or self-care (01) ==
LOC: ED 22:05
DX: S00.511A Abrasion of lip, initial encounter (principal); S09.90XA Unspecified injury of head, initial encounter; S60.812A Abrasion of left wrist, initial encounter; S60.811A Abrasion of right wrist, initial encounter; W01.0XXA Fall on same level from slipping, tripping and stumbling without subsequent striking against object, initial encounter; M06.9 Rheumatoid arthritis, unspecified; M81.0 Age-related osteoporosis without current pathological fracture

== ENCOUNTER 2018-08-09 13:06 | Outpatient (CLI) | payer MEDICARE | END 2018-08-09 13:07 | disposition home or self-care (01) | LOC: RAD 13:06 ==

== ENCOUNTER 2018-08-29 10:37 | Emergency (ER) | payer MEDICARE ==
[2018-08-29 10:37] VITALS: BMI 23.0
[2018-08-29 10:49] VITALS: RESP 18; TEMP 98.2; O2SAT 97
--- NOTE | 2018-08-29 11:27 | ED PDOC ---
Arrival/HPI - General Chief Complaint: Upper Extremity Problem/Injury Time Seen by Provider: 08/29/18 10:39 Historian: Patient - History of Present Illness Narrative History of Present Illness (Text): 08/29/18 11:24 An 83 year old female, whose past medical history includes arthritis and hyperlipidemia, presents to the ED for left upper arm pain for the past 2 days. Patient reports pain feels muscular and radiates to left shoulder. Patient denies any trauma or mechanical injuries and states she does not know any reason that could have triggered onset of symptoms. Patient also denies any fevers, chills, headache, dizziness, chest pain, shortness of breath, dyspnea on exertion, cough, abdominal pain, nausea, vomiting, diarrhea, back pain, neck pain, urinary/bowel changes, or any other complaints. Time/Duration: < week Symptom Onset: Gradual Symptom Course: Unchanged Activities at Onset: Light Context: Home Past Medical History - Provider Review Nursing Documentation Reviewed: Yes - Infectious Disease Hx of Infectious Diseases: None - Cardiac Hx Cardiac Disorders: No Hx Pacemaker: No - Pulmonary Hx Respiratory Disorders: No - Neurological Hx Neurological Disorder: Yes (syncope) Other/Comment: fainting - HEENT Hx HEENT Disorder: Yes (reading glasses) Hx Glaucoma: Yes - Renal Hx Renal Disorder: No - Endocrine/Metabolic Hx Endocrine Disorders: No - Hematological/Oncological Hx Blood Disorders: No - Integumentary Hx Dermatological Disorder: Yes Other/Comment: dry skin both feet, bunyon left foot, 2nd toe overlapping great toe hammertoe, r ft pt had bunyon sx but toes 2 and 3 hammertoes and overlap great toe - Musculoskeletal/Rheumatological Hx Musculoskeletal Disorders: Yes Hx Arthritis: Yes (RA) Hx Falls: Yes (past) Hx Osteoporosis: Yes Hx Unsteady Gait: Yes Other/Comment: rheumatoid artritis of hands, spine surgery neck, right foot sx - Gastrointestinal Hx Gastrointestinal Disorders: Yes Other/Comment: colonoscopy 03/07/17 dx rectal bleeding, dx polyp ascending, transverse colon, rectal polyp, hemorrhoids - Genitourinary/Gynecological Hx Genitourinary Disorders: No - Psychiatric Hx Psychophysiologic Disorder: Yes Hx Anxiety: Yes Hx Depression: Yes ( of daughter 12 yrs ago) Hx Emotional Abuse: No Hx Physical Abuse: No Hx Substance Use: No - Surgical History Hx Hysterectomy: Yes Other/Comment: R Foot SX, Spinal SX (Neck) - Anesthesia Hx Anesthesia: No Hx Anesthesia Reactions: No Hx Malignant Hyperthermia: No - Suicidal Assessment Feels Threatened In Home Enviroment: No Family/Social History - Physician Review Nursing Documentation Reviewed: Yes Family/Social History: No Known Family HX Smoking Status: Never Smoked Hx Alcohol Use: No Hx Substance Use: No Allergies/Home Meds Allergies/Adverse Reactions: Allergies No Known Allergies Allergy (Verified 10/07/15 18:32) Home Medications: Home Meds Medication Instructions Recorded Confirmed Latanoprost [Xalatan] 2.5 ml BOTHEYES DAILY 06/16/15 05/27/17 Review of Systems - Physician Review All systems were reviewed & negative as marked: Yes - Review of Systems Constitutional: absent: Fatigue, Fevers Eyes: absent: Vision Changes ENT: absent: Hearing Changes, Epistaxis Respiratory: absent: SOB, Cough Cardiovascular: absent: Chest Pain Gastrointestinal: absent: Abdominal Pain, Diarrhea, Nausea, Vomiting Genitourinary Female: absent: Dysuria, Frequency Musculoskeletal: Other (left upper arm pain, lower extremity swelling). absent: Back Pain, Neck Pain Skin: absent: Rash Neurological: absent: Headache, Dizziness Endocrine: absent: Diaphoresis Hemo/Lymphatic: absent: Adenopathy Psychiatric: absent: Anxiety, Depression Physical Exam Vital Signs Reviewed: Yes Vital Signs Temp Pulse Resp BP Pulse Ox 08/29/18 10:49 98.2 F 70 18 176/72 H 97 Temperature: Afebrile Blood Pressure: Hypertensive Pulse: Regular Respiratory Rate: Normal Appearance: Positive for: Well-Appearing, Non-Toxic, Comfortable Pain Distress: None Mental Status: Positive for: Alert and Oriented X 3 - Systems Exam Head: Present: Atraumatic, Normocephalic Pupils: Present: PERRL Extroacular Muscles: Present: EOMI Conjunctiva: Present: Normal Mouth: Present: Moist Mucous Membranes Neck: Present: Normal Range of Motion Respiratory/Chest: Present: Clear to Auscultation, Good Air Exchange. No: Respiratory Distress, Accessory Muscle Use Cardiovascular: Present: Regular Rate and Rhythm, Normal S1, S2. No: Murmurs Abdomen: No: Tenderness, Distention, Peritoneal Signs Upper Extremity: Present: Normal ROM, NORMAL PULSES, Tenderness (left bicep tenderness), Neurovascularly Intact, Capillary Refill < 2s Lower Extremity: Present: Normal Inspection. No: Edema Neurological: Present: GCS=15, CN II-XII Intact, Speech Normal Skin: Present: Warm, Dry, Normal Color. No: Rashes Psychiatric: Present: Alert, Oriented x 3, Normal Insight, Normal Concentration Medical Decision Making ED Course and Treatment: 08/29/18 11:32 Impression: An 83 year old female who presents to the ED for left arm pain. Differential Diagnosis included but are not limited to: Musculoskeletal vs cardiac vs dvt Plan: -- EKG -- CT of upper extremity -- US upper extremity -- Reassess and disposition Prior Visits: Notes and results from previous visits were reviewed. Progress Notes: 08/29/18 11:42 EKG: NSR @ 64 bpm. LBBB. Normal intervals, no ST elevations. 08/29/18 12:48 Patient's EKG is normal and unchanged from previous study. Patient feels better. Xray negative for fx or mass. Ultrasound prelim negative for DVT. Patient will make sure to follow up with her PMD Dr. Ayon. She was advised to return to the ED if symptoms worsen or any other concerns. - RAD Interpretation Radiology Orders: 08/29/18 11:20 HUMERUS LEFT [RAD] Stat DUPLEX UPPER EXTRM VEIN LEFT [US] Stat - Scribe Statement The provider has reviewed the documentation as recorded by the Eula Bianchi Provider Scribe Attestation: All medical record entries made by the Scribe were at my direction and personally dictated by me. I have reviewed the chart and agree that the record accurately reflects my personal performance of the history, physical exam, medical decision making, and the department course for this patient. I have also personally directed, reviewed, and agree with the discharge instructions and disposition. Disposition/Present on Arrival - Present on Arrival Any Indicators Present on Arrival: No History of DVT/PE: No History of Uncontrolled Diabetes: No Urinary Catheter: No History of Decub. Ulcer: No History Surgical Site Infection Following: None - Disposition Have Diagnosis and Disposition been Completed?: Yes Diagnosis: Arm pain Disposition: HOME/ ROUTINE Disposition Time: 12:51 Patient Plan: Discharge Patient Problems: Current Active Problems Problem Status Onset Arm pain Acute Condition: IMPROVED Discharge Instructions (ExitCare): Muscle Strain Additional Instructions: LUKAS VELASCO, thank you for letting us take care of you today. Your provider was Berny Holly DO and you were treated for (L) ARM PAIN. The emergency medical care you received today was directed at your acute symptoms. If you were prescribed any medication, please fill it and take as directed. It may take several days for your symptoms to resolve. Return to the Emergency Department if your symptoms worsen, do not improve, or if you have any other problems. Please contact your doctor or call one of the physicians/clinics you have been referred to that are listed on the Patient Visit Information form that is included in your discharge packet. Bring any paperwork you were given at discharge with you along with any medications you are taking to your follow up visit. Our treatment cannot replace ongoing medical care by a primary care provider outside of the emergency department. Thank you for allowing the [facility] team to be part of your care today. If you had an X-Ray or CT scan: A Radiologist will review the ED reading if any change in treatment is needed we will contact you. If you had a blood, urine, or wound culture: It will take several days for the results, if any change in treatment is needed we will contact you. If you had an STI test: It will take 48 hours for the results. Please call after 1 week if you have not heard back. Prescriptions: Ibuprofen [Motrin] 600 mg PO Q6 PRN #30 tab PRN Reason: Pain, Moderate (4-7) Referrals: Nathalie Ayon MD [Primary Care Provider] - Follow up with primary Forms: [employer] ([place])
--- NOTE | 2018-08-29 12:28 | RAD ---
PROCEDURE: Radiographs of the left humerus. HISTORY: pain r/o fx COMPARISON: None. TECHNIQUE: 2 views obtained. FINDINGS: BONES: Normal. No fracture or focal lesion. SOFT TISSUES: Normal. OTHER FINDINGS: None. IMPRESSION: Normal radiographs of left humerus.
[2018-08-29 13:01] VITALS: BP 174/71; PULSE 69
--- NOTE | 2018-08-29 13:12 | US ---
PROCEDURE: Left upper extremity venous ultrasound HISTORY: Arm pain and swelling. Evaluate for deep venous thrombosis. PHYSICIAN(S): Avery Booth MD. FINDINGS: The visualized leftinternal jugular vein is sonographically normal and compressible. No evidence of obstruction or thrombus is seen. The visualized segments of the left subclavian vein are patent with normal waveforms. No sonographic evidence of obstruction or thrombosis is seen. The visualized deep venous system of the proximal leftupper extremity is sonographically normal and compressible. IMPRESSION: 1. No sonographic evidence for deep venous thrombosis in the visualized segments of the left upper extremity.
--- NOTE | 2018-08-30 03:11 | CARD ---
APPROVED REPORT Date of service: 08/29/2018 EKG Measurement Heart [id number] <Conclusion> Normal sinus rhythm Left bundle branch block Abnormal ECG
== END 2018-08-29 13:44 | disposition home or self-care (01) ==
LOC: ED 10:37
DX: M79.622 Pain in left upper arm (principal); E78.5 Hyperlipidemia, unspecified; M19.90 Unspecified osteoarthritis, unspecified site